=== PATIENT | female | born 1970 | race Caucasian/White ===

== ENCOUNTER 2018-03-08 05:40 | Outpatient (CLI) | payer MEDICARE ==
[~2018-03-08] VITALS: Ht 175.3 cm; Wt 53.5 kg
[2018-03-08] MEDS ORDERED: ZINC50TA4 PO (14:38)
[2018-03-08] MEDS ORDERED: ASCO-262 PO (14:38)
== END 2018-03-08 14:45 ==
LOC: PREOP 05:40
PROVIDERS: ATTEND Otolaryngology Otolaryngology/Facial Plastic Surgery
DX: Z01.818 Encounter for other preprocedural examination (principal); J32.9 Chronic sinusitis, unspecified

== ENCOUNTER 2018-03-14 06:45 | Day surgery (SDC) | payer MEDICARE ==
[~2018-03-14] VITALS: Ht 175.3 cm; Wt 53.5 kg
[~2018-03-14 06:45] MED LIST: ASCO-262 PO; ZINC50TA4 PO
--- OUTSIDE RECORDS SUMMARY | 2018-03-14 06:48 | XMS REPORT | Referral Summary ---
Author Author [facility] Organization [facility] Address Unknown Phone Unavailable Care Team Providers Care Propellant Assembler Name Role Phone Daquan Mireles PCP Encounter VC Date(s): 09/16/15 - 09/16/15 [facility] [address] [place] [address] [facility] Discharge Diagnosis: Dysphagia Discharge Diagnosis: Congested Discharge Disposition: 01-Home or Self Care Attending Physician: Barrington Plummer PA-C Attending Physician: Provider, Immediate Care Admitting Physician: Provider, Immediate Care Vital Signs Most recent to 1 oldest [Reference Range]: Temperature Oral 36.4 degC [35.8-37.3 degC] (09/16/15 11:06 AM) Peripheral Pulse 104 bpm Rate [60-100 bpm] *HI* (09/16/15 11:06 AM) Respiratory Rate 18 br/min [14-20 br/min] (09/16/15 11:06 AM) Blood Pressure 121/76 mmHg [90-140/60-90 mmHg] (09/16/15 11:06 AM) SpO2 99 % (09/16/15 11:06 AM) Problem List Condition Effective Dates Status Health Status Informant Anxiety(Confirmed) Active patient Chronic back Active patient pain(Confirmed) Head pain(Confirmed) Active patient Lyme Active patient disease(Confirmed) Tobacco Active patient user(Confirmed) Allergies, Adverse Reactions, Alerts Substance Reaction Severity Status acetaminophen-HYDROcodone Adverse Reaction Active Bactrim Kidney disease Active NSAIDs Kidney disease Active Medications Astepro 205.5 mcg/inh (0.15%) nasal spray 2 sprays, Nasal, BID, as needed for allergy symptoms, # 30 mL, 0 Refill(s), Pharmacy: [id number] Start Date: 09/16/15 Status: Ordered liposomal glutathalon liposomal glutathalon, 0 Refill(s) Start Date: 09/16/15 Status: Ordered Magnesium maleate Magnesium maleate, 0 Refill(s) Start Date: 06/15/15 Status: Ordered Xanax 2 mg, Oral, TID, 0 Refill(s) Start Date: 06/15/15 Status: Ordered Results No data available for this section Immunizations No data available for this section Procedures Procedure Date Related Diagnosis Body Site Hysterectomy Social History Social History Type Response Smoking Status Current every day smoker; Type: Cigarettes; Tobacco use per day: Pack Assessment and Plan Extracted from: Title: Office Visit Note Author: Barrington Plummer PA-C Date: 09/16/15 Assessment/Plan 1.Congested Pt given astepro spray and a z-breanna; advised to follow-up with ENT regarding dysphagia. Diagnosis and treatment discussed. Patient also advised to follow up with PCP in 2-3 days. If symptoms worsen at any time, patient will go to the nearest ER for further evaluation. Patient stable upon discharge, alert and orientated with no apparent distress, and indicated understanding of discharge instructions. Ordered: Office Visit Level 3 Est 88290 2.Dysphagia see above Ordered: Office Visit Level 3 Est [id number] Orders: azelastine nasal, 2 sprays, Nasal, BID, as needed for allergy symptoms , # 30 mL, 0 Refill(s), Pharmacy: [id number]
--- OUTSIDE RECORDS SUMMARY | 2018-03-14 06:48 | XMS REPORT | Referral Summary ---
Author Author [facility] Organization [facility] Address Unknown Phone Unavailable Care Team Providers Care Electrical Troubleshooter Name Role Phone Daquan Mireles PCP Encounter VC Date(s): 09/17/15 - 09/17/15 [facility] [address] [place] [address] [phone] Discharge Diagnosis: Chest pain Discharge Disposition: 01-Home or Self Care Attending Physician: Adalberto Josue MD Admitting Physician: Adalberto Josue MD Vital Signs Most recent to 1 oldest [Reference Range]: Temperature Oral 36.5 degC [35.8-37.3 degC] (09/17/15 3:53 PM) Peripheral Pulse 100 bpm Rate [60-100 bpm] (09/17/15 5:54 PM) Respiratory Rate 20 br/min [14-20 br/min] (09/17/15 5:54 PM) Blood Pressure 108/79 mmHg [90-140/60-90 mmHg] (09/17/15 5:54 PM) SpO2 99 % (09/17/15 5:54 PM) Problem List Condition Effective Dates Status Health [...] symptoms, # 30 mL, 0 Refill(s), Pharmacy: [facility] [id number] Start Date: 09/16/15 Status: Ordered liposomal glutathalon liposomal glutathalon, 0 Refill(s) Start Date: 09/16/15 Status: Ordered Magnesium maleate Magnesium maleate, 0 Refill(s) Start Date: 06/15/15 Status: Ordered ProAir HFA 90 mcg/inh inhalation aerosol 2 puffs, Inhalation, q4hr, as needed for wheezing, # 8.5 g, 0 Refill(s) Start Date: 09/17/15 Status: Ordered Xanax 2 mg, Oral, TID, 0 Refill(s) Start Date: 06/15/15 Status: Ordered Results Hematology Most recent to 1 oldest [Reference Range]: WBC [4.8-10.8 12.6 10*3/uL 10*3/uL] *HI* (09/17/15 4:10 PM) RBC [4.00-5.20] 5.25 *HI* (09/17/15 4:10 PM) Hgb [12.0-16.0 16.0 gm/dL gm/dL] (09/17/15 4:10 PM) Hct [37.0-47.0 %] 46.6 % (09/17/15 4:10 PM) MCV [82.0-99.0 fL] 88.8 fL (09/17/15 4:10 PM) MCH [27.0-32.0 pg] 30.5 pg (09/17/15 4:10 PM) MCHC [32.0-36.0 34.3 gm/dL gm/dL] (09/17/15 4:10 PM) RDW [11.5-14.5 %] 12.6 % (09/17/15 4:10 PM) Platelet [150-400 235 10*3/uL 10*3/uL] (09/17/15 4:10 PM) MPV [9.4-12.4 fL] 10.6 fL (09/17/15 4:10 PM) Immature 0.2 % Granulocytes (09/17/15 4:10 PM) [0.0-1.0 %] Neutrophils [51-75 89 % %] *HI* (09/17/15 4:10 PM) Lymphocytes [20-46 7 % %] *LOW* (09/17/15 4:10 PM) Monocytes [4-11 %] 3 % *LOW* (09/17/15 4:10 PM) Eosinophils [0-4 %] 1 % (09/17/15 4:10 PM) Basophils [0-2 %] 0 % (09/17/15 4:10 PM) Neutro Absolute 11.22 10*3 [1.90-7.00 10*3] *HI* (09/17/15 4:10 PM) Lymph Absolute 0.91 10*3 [0.80-3.30 10*3] (09/17/15 4:10 PM) Day Absolute 0.32 10*3 [0.30-1.00 10*3] (09/17/15 4:10 PM) Eos Absolute 0.09 10*3 [0.00-0.50 10*3] (09/17/15 4:10 PM) Baso Absolute 0.01 10*3 [0.00-0.20 10*3] (09/17/15 4:10 PM) Nucleated RBC 0.0 /100 WBC Automated [0 /100 (09/17/15 4:10 PM) WBC] Chemistry Most recent to 1 oldest [Reference Range]: Sodium Lvl [136-144 142 mEq/L mEq/L] (09/17/15 4:10 PM) Potassium Lvl 3.6 mEq/L [3.6-5.1 mEq/L] (09/17/15 4:10 PM) Chloride [99-109 108 mEq/L mEq/L] (09/17/15 4:10 PM) CO2 [22-32 mEq/L] 26 mEq/L (09/17/15 4:10 PM) AGAP [3-20] 8 (09/17/15 4:10 PM) BUN [4-20 mg/dL] 11 mg/dL (09/17/15 4:10 PM) Glucose Lvl [70-100 76 mg/dL mg/dL] (09/17/15 4:10 PM) Creatinine Lvl 0.87 mg/dL [0.44-1.03 mg/dL] (09/17/15 4:10 PM) eGFR [>60] >60 1 (09/17/15 4:10 PM) Calcium Lvl 9.4 mg/dL [8.6-10.0 mg/dL] (09/17/15 4:10 PM) Albumin Lvl [3.5-4.8 4.2 gm/dL gm/dL] (09/17/15 4:10 PM) Total Protein 6.7 gm/dL [6.1-7.9 gm/dL] (09/17/15 4:10 PM) Globulin [1.9-4.3 2.5 gm/dL gm/dL] (09/17/15 4:10 PM) ALT [14-54 U/L] 19 U/L (09/17/15 4:10 PM) AST [15-41 U/L] 19 U/L (09/17/15 4:10 PM) Alk Phos [26-104 56 U/L U/L] (09/17/15 4:10 PM) Bili Total [0.2-1.2 0.5 mg/dL 2 mg/dL] (09/17/15 4:10 PM) Magnesium Lvl 1.9 mg/dL [1.8-2.5 mg/dL] (09/17/15 4:10 PM) Troponin [<0.06 <0.05 ng/mL ng/mL] (09/17/15 4:10 PM) TSH with Reflex Free 1.33 T4 [0.35-5.50] (09/17/15 4:10 PM) 1Result Comment: Multiply eGFR results by 1.21 for race. 2Result Comment: Naproxen, specifically the metabolite O-desmethylnaproxen, may cause spurious elevation in Total Bilirubin levels. Immunizations No data available for this section Procedures Procedure Date Related Diagnosis Body Site Hysterectomy Social History Social History Type Response Smoking Status Current every day smoker; Type: Cigarettes; Tobacco use per day: Pack; Number of years: 20 Assessment and Plan No data available for this section
--- OUTSIDE RECORDS SUMMARY | 2018-03-14 06:48 | XMS REPORT | Referral Summary ---
Author Author [facility] Organization [facility] Address Unknown Phone Unavailable Care Team Providers Care City Collector Name Role Phone Daquan Mireles PCP Encounter VC Date(s): 06/21/15 - 06/21/15 [facility] [address] [place] [address] Final: UNSPECIFIED DISORDER OF KIDNEY AND URETER Final: Chronic kidney disease, Stage III (moderate) Discharge Disposition: 01-Home or Self Care Attending Physician: Clifton Robbins MD Vital Signs No data available for this section Problem List Condition Effective Dates Status Health Status Informant Anxiety(Confirmed) Active patient Chronic back Active patient pain(Confirmed) Head pain(Confirmed) Active patient Lyme Active patient disease(Confirmed) Tobacco Active patient user(Confirmed) Allergies, Adverse Reactions, Alerts Substance Reaction Severity Status acetaminophen-HYDROcodone Adverse Reaction Active Bactrim Kidney disease... Active NSAIDs Kidney disease... Active Medications Astepro 205.5 mcg/inh (0.15%) nasal spray 2 sprays, Nasal, BID, as needed for allergy symptoms, # 30 mL, 0 Refill(s), Pharmacy: [facility] Start Date: 09/16/15 Status: Ordered liposomal glutathalon [...]
--- OUTSIDE RECORDS SUMMARY | 2018-03-14 06:49 | XMS REPORT | Referral Summary ---
Author Author [facility] Organization [facility] Address Unknown Phone Unavailable Care Team Providers Care Lithographic Etcher Name Role Phone Daquan Mireles PCP Encounter VC Date(s): 06/15/15 - 06/15/[address] [facility] [address] [place] [address] Discharge Diagnosis: Abdominal pain Final: ABDOMINAL PAIN, EPIGASTRIC Discharge Disposition: 01-Home or Self Care Attending Physician: Ryder Santacruz MD Admitting Physician: Ryder Santacruz MD Vital Signs Most recent to 1 oldest [Reference Range]: Temperature Oral 36.5 degC [35.8-37.3 degC] (06/15/15 11:56 AM) Peripheral Pulse 74 bpm Rate [60-100 bpm] (06/15/15 7:00 PM) Heart Rate Monitored 67 bpm [60-100 bpm] (06/15/15 5:42 PM) Respiratory Rate 16 br/min [14-20 br/min] (06/15/15 7:00 PM) Blood Pressure 103/67 mmHg [90-140/60-90 mmHg] (06/15/15 7:00 PM) Mean Arterial 97 mmHg Pressure, Cuff (06/15/15 6:15 PM) SpO2 98 % (06/15/15 7:00 PM) Problem List Condition Effective Dates Status [...] symptoms, # 30 mL, 0 Refill(s), [id number] Start Date: 09/16/15 Status: Ordered liposomal glutathalon [...] to 1 oldest [Reference Range]: WBC [4.8-10.8 11.5 10*3/uL 10*3/uL] *HI* (06/15/15 12:02 PM) RBC [4.00-5.20] 5.04 (06/15/15 12:02 PM) Hgb [12.0-16.0 15.2 gm/dL gm/dL] (06/15/15 12:02 PM) Hct [37.0-47.0 %] 44.2 % (06/15/15 12:02 PM) MCV [82.0-99.0 fL] 87.7 fL (06/15/15 12:02 PM) MCH [27.0-32.0 pg] 30.2 pg (06/15/15 12:02 PM) MCHC [32.0-36.0 34.4 gm/dL gm/dL] (06/15/15 12:02 PM) RDW [11.5-14.5 %] 13.4 % (06/15/15 12:02 PM) Platelet [150-400 230 10*3/uL 10*3/uL] (06/15/15 12:02 PM) MPV [9.4-12.4 fL] 10.7 fL (06/15/15 12:02 PM) Immature 0.1 % Granulocytes (06/15/15 12:02 PM) [0.0-1.0 %] Neutrophils [51-75 84 % %] *HI* (06/15/15 12:02 PM) Lymphocytes [20-46 11 % %] *LOW* (06/15/15 12 PM) Monocytes [4-11 %] 5 % (06/15/15: PM) Eosinophils [0-4 %] 0 % (06/15/15 PM) Basophils [0-2 %] 0 % (06/15/15 PM) Neutro Absolute 9.68 10*3 [1.90-7.00 10*3] *HI* (06/15/15 PM) Lymph Absolute 1.21 10*3 [0.80-3.30 10*3] (06/15/15: PM) Camp Absolute 0.55 10*3 [0.30-1.00 10*3] (06/15/15 PM) Eos Absolute 0.02 10*3 [0.00-0.50 10*3] (06/15/15 PM) Baso Absolute 0.02 10*3 [0.00-0.20 10*3] (06/15/15 PM) Nucleated RBC 0.0 /100 WBC Automated [0 /100 (06/15/15: PM) WBC] Chemistry Most recent to 1 oldest [Reference Range]: Sodium Lvl [136-144 140 mEq/L mEq/L] (06/15/15 PM) Potassium Lvl 4.0 mEq/L [3.6-5.1 mEq/L] (06/15/15: PM) Chloride [99-109 106 mEq/L mEq/L] (06/15/15 PM) CO2 [22-32 mEq/L] 22 mEq/L (06/15/15 PM) AGAP [3-20] 12 (06/15/15: PM) BUN [4-20 mg/dL] 12 mg/dL (06/15/15 PM) Glucose Lvl [70-100 97 mg/dL mg/dL] (06/15/15: PM) Creatinine Lvl 1.06 mg/dL [0.44-1.03 mg/dL] *HI* (06/15/15 PM) eGFR [>60] 56 1 *ABN* (06/15/15 12:02 PM) Calcium Lvl 9.6 mg/dL [8.6-10.0 mg/dL] (06/15/15 12:02 PM) Occult Blood, Stool Positive NPT [Negative] *ABN* (06/15/15 3:08 PM) 1Result Comment: Multiply eGFR results by 1.21 for race. Urinalysis Most recent to 1 oldest [Reference Range]: UA Color Lt Yellow (06/15/15 12:24 PM) UA Appear Clear (06/15/15 12:24 PM) UA pH [5.0-8.0] 5.0 (06/15/15 12:24 PM) UA Leuk Est Negative [Negative] (06/15/15 12:24 PM) UA Nitrite Negative [Negative] (06/15/15 12:24 PM) UA Protein Negative [Negative] (06/15/15 12:24 PM) UA Glucose Negative [Negative] (06/15/15 12:24 PM) UA Ketones Negative [Negative] (06/15/15 12:24 PM) UA Urobilinogen Negative [<1.0] (06/15/15 12:24 PM) UA Bili [Negative] Negative (06/15/15 12:24 PM) UA Blood [Negative] Trace *ABN* (06/15/15 12:24 PM) UA Spec Grav 1.006 [1.003-1.030] (06/15/15 12:24 PM) Type Clean Catch (06/15/15 12:24 PM) UA WBC [0-4] 0-2 (06/15/15 12:24 PM) UA RBC [0-2] 2-5 (06/15/15 12:24 PM) Epithelial Cells 2-5 (06/15/15 12:24 PM) UA Bacteria Occasional *ABN* (06/15/15 12:24 PM) Immunizations No data available for this section Procedures Procedure Date Related Diagnosis Body Site Hysterectomy Social History Social History Type Response Smoking Status Current every day smoker; Type: Cigarettes; Tobacco use per day: Pack; Number of years: 20 Assessment and Plan No data available for this section
--- OUTSIDE RECORDS SUMMARY | 2018-03-14 06:49 | XMS REPORT | Continuity of Care Document ---
Author Author Vivien Mckeon [facility] Vivien Mckeon [facility] Address Unknown Phone Unavailable Support Name Relationship Address Phone JOHANNA PECK M.D. Caregiver [employer] [address] [place] [address] CAMILLABARBARA SANTIAGO Next Of Kin [address] [place] [address] NO ONE ELSE 06/01/15 [place] [address] Insurance Providers Guarantor Osmani Ruth Address [address] [place] [id number] Payer [employer] Medicare Policy Number [id number] Subscriber's Name Osmani Ruth A Relationship 01 Self / Same As Patient Payer Blue Cross Plan 65 Policy Number [id number] Subscriber's Name Osmani Ruth A Relationship 01 Self / Same As Patient Group Number [id number] Advance Directives No advance directive information available. Chief Complaint and Reason for Visit Chief Complaint Chest Pain Reason for Visit [id number] Problems Medical Problem Onset Date Status RUQ pain Unknown Acute Splinter in skin Unknown Acute Splinter in skin Unknown Acute Medications Current Home Medications Medication Dose Units Route Directions Days Qty Instructions Start Date Hydrocodone-Acetaminophen ([place]) 5/325 Tab 1-2 Tab Oral Q4-6H as needed for Pain 15 Tablet 12/15/17 Ondansetron (Zofran Odt) 4 Mg Tab 1-2 Tab Oral Every 6 Hours As Needed as needed for Nausea 15 Tablet 12/15/17 Triamterene (Dyrenium *Nf) 100 Mg Cap 100 Mg Oral Past Home Medications Medication Directions Ordered Status Phenazopyridine Hcl (Pyridium) 100 Mg Tab, 100 Mg Oral Three Times A Day 19/09 Discontinued Social History Social History Problem Response Recorded Date/Time Onset Date Status Smoking Status Current every day smoker 12/15/2017 9:57am Not Applicable Not Applicable Smoking Status Start Date Stop Date Current every day smoker Hospital Discharge Instructions No hospital discharge instruction information available. Plan of Care Discharge Date 12/15/17 11:50am Disposition 01 HOME, SELF-CARE Condition at Discharge Stable Instructions/Education Provided Abdominal Pain (ED) Prescriptions See Medication Section Referrals DASIA SWAN M.D. Address: [address] [place] [address] [address] [place] [address] Note: CHRISTOPHE GOMEZ M.D. Address: [address] [place] [address] [address] [place] [address] Additional Instructions/Education 1. Follow up with your doctor in 2-3 days. 2. Use pain medication as needed for pain, nausea medication as needed. 3. Rest and drink plenty of fluids. 4. Return to ER if worsening pain, repetitive vomiting, fever, or other new concerns. Functional Status No functional status information available. Allergies, Adverse Reactions, Alerts No known allergies. Immunizations No immunization information available. Vital Signs Acute Vital Signs Vital Response Date/Time Blood Pressure 131/77 mm Hg 12/15/2017 11:30am Blood Pressure Mean 95 mm Hg 12/15/2017 11:30am Temperature (Fahrenheit) 97.5 degrees F (96.0 - 99.9) 12/15/2017 9:47am Temperature (Calculated Celsius) 36.13730 degrees C 12/15/2017 9:47am Temperature Source Oral 12/15/2017 9:47am Pulse Pulse Rate (adult) 83 bpm (60 - 100) 12/15/2017 10:28am Pulse Rate: ED 86 bpm 12/15/2017 11:50am Respiratory Rate 16 breaths per minute (10 - 20) 12/15/2017 11:50am Height (Feet) 5 ft 12/15/2017 9:47am Height (Inches) 10.0 in. 12/15/2017 9:47am Weight (Pounds) 118.0 lbs 12/15/2017 9:47am Height 5 ft 10 in 12/15/2017 9:47am Weight 118 lb 12/15/2017 9:47am Body Mass Index 16.9 kg/m^2 12/15/2017 9:47am Results Laboratory Results Test Name Result Units Flags Reference Collection Date/Time Result Date/ Time Comments White Blood Count 9.4 K/uL 5.0-10.0 12/15/2017 9:55am 12/15/2017 10: 06am Red Blood Count 5.80 M/uL H 4.20-5.40 12/15/2017 9:55am 12/15/2017 10: 06am Hemoglobin 17.5 g/dL H 12.0-16.0 12/15/2017 9:55am 12/15/2017 10:06am Hematocrit 51.0 % H 38.0-47.0 12/15/2017 9:55am 12/15/2017 10:06am Mean Corpuscular Volume 87.9 fL 82.0-100.0 12/15/2017 9:55am 2017 10:06am Mean Corpuscular Hemoglobin 30.2 pg 26.0-33.0 12/15/2017 9:55am 2017 10:06am Mean Corpuscular Hemoglobin Concent 34.3 g/dL 31.0-36.0 12/15/2017 9: 55am 12/15/2017 10:06am Red Cell Distribution Width 12.7 % 11.5-14.5 12/15/2017 9:55am 2017 10:06am RDW Standard Deviation 40.6 fL 36.4-46.3 12/15/2017 9:55am 12/15/2017 10:06am Platelet Count 288 K/uL 130-400 12/15/2017 9:55am 12/15/2017 10:06am Mean Platelet Volume 10.6 fL 7.0-11.0 12/15/2017 9:55am 12/15/2017 10: 06am Neutrophils (%) (Auto) 63.2 % 42.0-75.0 12/15/2017 9:55am 12/15/2017 10 :06am Lymphocytes (%) (Auto) 28.4 % 16.0-44.0 12/15/2017 9:55am 12/15/2017 10 :06am Monocytes (%) (Auto) 6.9 % 2.0-9.0 12/15/2017 9:55am 12/15/2017 10: 06am Eosinophils (%) (Auto) 0.3 % 0-7.0 12/15/2017 9:55am 12/15/2017 10: 06am Basophils (%) (Auto) 0.8 % 0-1 12/15/2017 9:55am 12/15/2017 10:06am Immature Granulocyte % (Auto) 0.4 % 0-0.5 12/15/2017 9:55am 12/15/2017 10:06am Nucleated Red Blood Cells % 0.0 /100WBC 0-0 12/15/2017 9:55am 2017 10:06am Neutrophils # (Auto) 6.0 K/uL 1.9-8.0 12/15/2017 9:55am 12/15/2017 10: 06am Lymphocytes # (Auto) 2.7 K/uL 0.9-5.2 12/15/2017 9:55am 12/15/2017 10: 06am Monocytes # (Auto) 0.7 K/uL 0.16-1.0 12/15/2017 9:55am 12/15/2017 10: 06am Eosinophils # (Auto) 0.0 K/uL 0-0.8 12/15/2017 9:55am 12/15/2017 10: 06am Basophils # (Auto) 0.1 K/uL 0-0.2 12/15/2017 9:55am 12/15/2017 10:06am Immature Granulocyte # (Auto) 0.04 K/uL 0-0.40 12/15/2017 9:55am 2017 10:06am Nucleated Red Blood Cells # 0.00 K/uL 0.0-0.012 12/15/2017 9:55am 12/15 10:06am Urine Color COLORLESS 12/15/2017 9:55am 12/15/2017 10:07am Urine Turbidity Negative Negative 12/15/2017 9:55am 12/15/2017 10: 07am Urine Specific [place] 1.001 1.000-1.050 12/15/2017 9:55am 2017 10:07am Urine Glucose (UA) Negative Negative 12/15/2017 9:55am 12/15/2017 10: 07am Urine Protein Negative Negative 12/15/2017 9:55am 12/15/2017 10:07am Urine Urobilinogen NORMAL Normal 12/15/2017 9:55am 12/15/2017 10: 07am Urine Bilirubin Negative Negative 12/15/2017 9:55am 12/15/2017 10: 07am Urine pH 5.5 5.0-8.0 12/15/2017 9:55am 12/15/2017 10:07am Urine Ketones Trace Negative 12/15/2017 9:55am 12/15/2017 10:07am Urine Leukocyte Esterase Negative Negative 12/15/2017 9:55am 2017 10:07am Urine Blood Negative Negative 12/15/2017 9:55am 12/15/2017 10:07am Urine Nitrite Negative Negative 12/15/2017 9:55am 12/15/2017 10:07am Urine RBC (Auto) 0.5 /hpf 0.0-2.0 12/15/2017 9:55am 12/15/2017 10:26am Urine WBC (Auto) 1.0 /hpf 0.0-5.0 12/15/2017 9:55am 12/15/2017 10:26am Urine Epithelial Cells (Auto) 2.1 /lpf 0.0-10.0 12/15/2017 9:55am 12/15 10:26am Urine Casts (Auto) 0.1 /lpf 0.0-10.0 12/15/2017 9:55am 12/15/2017 10: 26am Urine Bacteria (Auto) 1.0 /hpf 0.0-500.0 12/15/2017 9:55am 12/15/2017 10:26am Random Glucose 90 mg/dL 65-115 12/15/2017 9:55am 12/15/2017 10:22am Blood Urea Nitrogen 9 mg/dL 8-25 12/15/2017 9:55am 12/15/2017 10:22am Creatinine 0.75 mg/dL L 0.9-1.6 12/15/2017 9:55am 12/15/2017 10:22am Glomerular Filtration Rate Calc 82.13 mL/min 12/15/2017 9:55am 2017 10:22am MULTIPLY RESULT BY 1.210 IF THE PATIENT IS -SRI LANKAN Units are mL/min/1.73 m2 > 60 Normal kidney function 30-59 Moderately decreased kidney function 15-29 Severely decreased kidney function <15 End-stage kidney failure BUN/Creatinine Ratio 12.0 12/15/2017 9:55am 12/15/2017 10:22am Sodium Level 134 mEq/L 133-145 12/15/2017 9:55am 12/15/2017 10:22am Potassium Level 2.8 mEq/L *L 3.5-5.1 12/15/2017 9:55am 12/15/2017 10: 22am CRITICAL RESULT VERIFIED AND CALLED TO AMBER AT 1022 BY [id number]. CRR Chloride Level 101 mEq/L 98-116 12/15/2017 9:55am 12/15/2017 10:22am Carbon Dioxide Level 21 mEq/L L 22-34 12/15/2017 9:55am 12/15/2017 10: 22am Anion Gap 14.8 H 6-13 12/15/2017 9:55am 12/15/2017 10:22am Calcium Level 9.4 mg/dL 8.2-10.6 12/15/2017 9:55am 12/15/2017 10:22am Total Protein 7.8 gm/dL 6.0-8.4 12/15/2017 9:55am 12/15/2017 10:22am Albumin 5.1 gm/dL H 3.2-5.0 12/15/2017 9:55am 12/15/2017 10:22am Globulin 2.7 gm/dL 2.0-3.0 12/15/2017 9:55am 12/15/2017 10:22am Albumin/Globulin Ratio 1.9 1.4-2.4 12/15/2017 9:55am 12/15/2017 10: 22am Total Bilirubin 1.1 mg/dL 0.1-1.3 12/15/2017 9:55am 12/15/2017 10:22am Alkaline Phosphatase 58 U/L 35-125 12/15/2017 9:55am 12/15/2017 10: 22am Aspartate Amino Transf (AST/SGOT) 20 U/L 5-40 12/15/2017 9:55am 2017 10:22am Alanine Aminotransferase (ALT/SGPT) 18 U/L 5-40 12/15/2017 9:55am 12/15 10:22am Troponin I 0.01 ng/mL 0.0-0.02 12/15/2017 9:55am 12/15/2017 10:25am Lipase 20 U/L 8-57 12/15/2017 9:55am 12/15/2017 10:22am Procedures No procedure information available. Encounters Encounter Location Arrival/Admit Date Discharge/Depart Date Attending Provider Departed Emergency Room [facility] 12/15/17 9:46am 11:50am JOHANNA PECK M.D. Registered Referred [facility] 06/01/15 12:53pm DASIA SWAN M.D. Recent Diagnosis
[2018-03-14 07:25] VITALS: BP 108/76
[2018-03-14] MEDS: LACTATED RINGERS 1,000 ML IV PRN ×2 (07:25→10:00)
[2018-03-14] MEDS ORDERED: AMPICILLIN/SULBACTAM INJECTION 1.5 GM in NS (IVPB) 100 ML IV ONE (07:30)
[2018-03-14] MEDS ORDERED: CATHETER FLUSH 10 ML SYR IV PRN (07:45)
[2018-03-14] MEDS ORDERED: LIDOCAINE/EPI 1%-1:200,000 (XYLOCAINE) 10 ML VIAL ONE (08:23)
[2018-03-14] MEDS ORDERED: COCAINE HCL 4% 2 ML SYR ONE (08:23)
[2018-03-14] MEDS ORDERED: PHENYLEPHRINE 0.5% NASAL SPR (NEO-SYNEPHRINE) REG ONE (08:23)
[2018-03-14] MEDS ORDERED: BSS 15 ML ONE (08:23)
[2018-03-14] MEDS ORDERED: SEVOFLURANE (ULTANE) 15 ML INHAL SOLN ONE ×4 (08:33→11:12)
[2018-03-14] MEDS ORDERED: proPOfol 200 MG/20 ML (DIPRIVAN) VIAL IV ONE (08:33)
[2018-03-14] MEDS ORDERED: DEXAMETHASONE 10 MG/ML (DECADRON) 1 ML VIAL ONE (08:33)
[2018-03-14] MEDS ORDERED: ROCURONIUM 10 MG/ML 5 ML SYRINGE IV ONE (08:33)
[2018-03-14] MEDS ORDERED: ONDANSETRON 4 MG/2 ML (SDV) Z0FRAN ONE (08:33)
[2018-03-14] MEDS ORDERED: fentaNYL INJECTION 100 MCG/2 ML AMP ONE (08:36)
[2018-03-14] MEDS ORDERED: MIDAZOLAM 2 MG/2 ML (VERSED) VIAL ONE (08:36)
--- NOTE | 2018-03-14 09:17 | Progress Note-Pre Operative ---
Pre-Operative Progress Note H&P Reviewed The H&P was reviewed, patient examined and no changes noted. Date Seen by Provider: Mar 14, 2018 Time Seen by Provider: 08: Date H&P Reviewed: Mar 14, 2018 Time H&P Reviewed: :30 Pre-Operative Diagnosis: Bilat Chronic Sinusitis, Deviated Nasal Septum, Bilat HYper of Inf Turbs AJ ROCHA MD Mar 14, 2018 9:17 am
[2018-03-14] MEDS ORDERED: D5 1/2 NS W/KCL 20 MEQ/L 1,000 ML IV SCH (11:02)
--- NOTE | 2018-03-14 11:02 | Progress Note-Post Operative ---
Post-Operative Progess Note Surgeon (s)/Salesperson Sheet Music (s) Surgeon AJ ROCHA MD Salesperson Sheet Music n/a Pre-Operative Diagnosis Bilat Chronic Sinusitis, Deviated Nasal Septum, Bilat HYper of Inf Turbs Post-Operative Diagnosis same Post-Op Procedure Note Date of Procedure: Mar 14, 2018 Name of Procedure Performed: Bilat ESS, Nasal Septoplasty, Bialt Red of Inf Turbs Description & Findings Description and Findings: n/a Anesthesia Type get Estimated Blood Loss minimal Packing DNP bilat Specimen(s) collected/removed nasal septum, bilat chornic sinus disease AJ ROCHA MD Mar 14, 2018 11:02 am
[2018-03-14] MEDS ORDERED: MEPERIDINE (DEMEROL) INJ 50 MG/ML IVP PRN (11:15)
[2018-03-14] MEDS ORDERED: PROMETHAZINE INJ 25 MG/ML (PHENERGAN) AMP IVP PRN (11:15)
[2018-03-14] MEDS ORDERED: ONDANSETRON 4 MG/2 ML (SDV) Z0FRAN IVP PRN (11:15)
[2018-03-14] MEDS ORDERED: HYDROcodone/APAP 5 MG/325 MG (LORTAB) TAB PO PRN (11:15)
[2018-03-14] MEDS ORDERED: ACETAMINOPHEN 325 MG TABLET/CAPLET (TYLENOL) PO PRN (11:15)
[2018-03-14] MEDS: morphine INJ 10 MG/ML 1ML (SYR OR VIAL) IVP PRN ×2 (11:31→11:35)
[2018-03-14 12:10] VITALS: BP 120/77
[2018-03-14 12:40] VITALS: BP 121/80
[2018-03-14] MEDS ORDERED: HYDR-3812 PO (12:43)
[2018-03-14] MEDS ORDERED: AMOX-355 PO (12:43)
[2018-03-14 13:10] VITALS: BP 114/60
[2018-03-14 13:50] VITALS: BP 125/76
[2018-03-14 14:10] VITALS: BP 125/76
== END 2018-03-14 14:10 | disposition home or self-care (01) ==
LOC: SDC 06:45
PROVIDERS: ATTEND Otolaryngology Otolaryngology/Facial Plastic Surgery
DX: J32.2 Chronic ethmoidal sinusitis (principal); J32.0 Chronic maxillary sinusitis; J34.3 Hypertrophy of nasal turbinates; F17.210 Nicotine dependence, cigarettes, uncomplicated
CPT/HCPCS: 87081; 88305; 88311